=== PATIENT | female | born 1975 | race Two or more races ===

== ENCOUNTER → 2017-05-25 10:25 | Outpatient (CLI) | payer OTHER | END | disposition home or self-care (01) | LOC: LAB 10:25 | DX: J00 Acute nasopharyngitis [common cold] (principal) ==

== ENCOUNTER → 2017-05-25 | Outpatient (CLI) | payer OTHER ==
[~2017-05-25] VITALS: Ht 152.4 cm; Wt 109.8 kg
[~2017-05-25] MED LIST: ALEVE220 M1 PO; CARAFATE1 G PO; CEFADROXIL500 MG PO; CEFTIN500 MG PO; DOLOGEN CAPLET1 EACH PO; FLONASE16 GM NS; GILTUSS TR TAB1 EACH PO; KETO10TA2 PO; LAMICTAL150 M1 PO; LAMICTAL200 M1 PO; MEDROL4 MG PO; NEURONTIN300 MG PO; NEURONTIN600 MG PO; ORPH100T PO; PEPCID20 MG PO; SEPTRA DS PO; ULTRACET PO; URETRON DS1 TAB PO; VOLTAREM 50 MG PO; ZITHROMAX200 MG PO; ZITHROMAX500 MG PO; ZYRTEC10 MG PO
== END | disposition home or self-care (01) ==
LOC: PPHC 07:29
DX: J00 Acute nasopharyngitis [common cold] (principal)

== ENCOUNTER 2017-06-11 06:50 | Emergency (ER) | payer OTHER ==
[~2017-06-11] VITALS: Ht 162.6 cm; Wt 108.9 kg
== END 2017-06-11 09:13 | disposition home or self-care (01) ==
LOC: ER 06:50
DX: M25.561 Pain in right knee (principal)

== ENCOUNTER → 2017-06-23 | Emergency (ER) | payer OTHER ==
[~2017-06-23] VITALS: Ht 162.6 cm; Wt 111.1 kg
== END | disposition home or self-care (01) ==
LOC: ER 19:31
DX: M62.830 Muscle spasm of back (principal); J06.9 Acute upper respiratory infection, unspecified

== ENCOUNTER → 2017-06-30 | Outpatient (CLI) | payer OTHER | END | disposition home or self-care (01) | LOC: LAB 17:04 | DX: G40.909 Epilepsy, unspecified, not intractable, without status epilepticus (principal) ==

== ENCOUNTER 2017-07-13 09:30 | Outpatient (CLI) | payer OTHER | END 2017-07-13 09:39 | disposition home or self-care (01) | LOC: MAMO-SONO 09:30 | DX: Z12.31 Encounter for screening mammogram for malignant neoplasm of breast (principal); N64.59 Other signs and symptoms in breast; N64.89 Other specified disorders of breast ==

== ENCOUNTER 2017-08-26 16:28 | Outpatient (CLI) | payer OTHER | END 2017-08-26 16:33 | disposition home or self-care (01) | LOC: LAB 16:28 | DX: G40.309 Generalized idiopathic epilepsy and epileptic syndromes, not intractable, without status epilepticus (principal) ==

== ENCOUNTER → 2017-09-09 15:50 | Outpatient (CLI) | payer OTHER | END | disposition home or self-care (01) | LOC: LAB 15:50 | DX: E78.2 Mixed hyperlipidemia (principal); E04.1 Nontoxic single thyroid nodule; R73.09 Other abnormal glucose ==

== ENCOUNTER 2017-12-05 06:31 | Outpatient (CLI) | payer OTHER | END 2017-12-05 06:39 | disposition home or self-care (01) | LOC: LAB 06:31 | DX: G40.209 Localization-related (focal) (partial) symptomatic epilepsy and epileptic syndromes with complex partial seizures, not intractable, without status epilepticus (principal); M79.671 Pain in right foot; M79.672 Pain in left foot ==

== ENCOUNTER 2018-01-25 08:35 | Outpatient (CLI) | payer OTHER | END 2018-01-25 08:43 | disposition home or self-care (01) | LOC: SONOGRAMA 08:35 | DX: D25.1 Intramural leiomyoma of uterus (principal) ==

== ENCOUNTER → 2018-01-31 | Emergency (ER) | payer OTHER ==
[~2018-01-31] VITALS: Ht 162.6 cm; Wt 108.9 kg
== END | disposition home or self-care (01) ==
LOC: ER 14:01
DX: S61.211A Laceration without foreign body of left index finger without damage to nail, initial encounter (principal); S61.213A Laceration without foreign body of left middle finger without damage to nail, initial encounter; S61.012A Laceration without foreign body of left thumb without damage to nail, initial encounter; W26.0XXA Contact with knife, initial encounter; Y93.89 Activity, other specified; Y92.098 Other place in other non-institutional residence as the place of occurrence of the external cause; Y99.8 Other external cause status

== ENCOUNTER 2018-02-20 08:04 | Outpatient (CLI) | payer OTHER | END 2018-02-20 08:11 | disposition home or self-care (01) | LOC: LAB 08:04 | DX: Z00.00 Encounter for general adult medical examination without abnormal findings (principal); E78.49 Other hyperlipidemia ==

== ENCOUNTER 2018-03-24 11:48 | Outpatient (CLI) | payer OTHER ==
[~2018-03-24 11:48] MED LIST changes: +NABUMETONE750 MG PO
== END 2018-03-24 12:08 | disposition home or self-care (01) ==
LOC: SONOGRAMA 11:48
DX: M79.672 Pain in left foot (principal)

== ENCOUNTER 2018-03-28 13:05 | Emergency (ER) | payer OTHER ==
[~2018-03-28] VITALS: Ht 162.6 cm; Wt 108.9 kg
== END 2018-03-28 15:00 | disposition home or self-care (01) ==
LOC: ER 13:05
DX: G44.209 Tension-type headache, unspecified, not intractable (principal)

== ENCOUNTER 2018-06-26 17:13 | Outpatient (CLI) | payer OTHER ==
[~2018-06-26 17:13] MED LIST changes: +ETODOLAC400 MG PO
== END 2018-06-26 17:19 | disposition home or self-care (01) ==
LOC: LAB 17:13
DX: R23.3 Spontaneous ecchymoses (principal)

== ENCOUNTER 2018-06-27 11:18 | Outpatient (CLI) | payer OTHER | END 2018-06-27 15:27 | disposition home or self-care (01) | LOC: RAD 11:18 | DX: J32.8 Other chronic sinusitis (principal) ==

== ENCOUNTER 2018-08-16 13:37 | Emergency (ER) | payer OTHER ==
[~2018-08-16] VITALS: Ht 162.6 cm; Wt 109.8 kg
== END 2018-08-16 16:01 | disposition home or self-care (01) ==
LOC: ER 13:37
DX: S40.012A Contusion of left shoulder, initial encounter (principal); S40.022A Contusion of left upper arm, initial encounter; W18.39XA Other fall on same level, initial encounter; Y93.89 Activity, other specified; Y92.89 Other specified places as the place of occurrence of the external cause; Y99.8 Other external cause status

== ENCOUNTER 2018-08-25 11:15 | Outpatient (CLI) | payer OTHER | END 2018-08-25 16:18 | disposition home or self-care (01) | LOC: RAD 11:15 | DX: M25.572 Pain in left ankle and joints of left foot (principal) ==

== ENCOUNTER 2018-11-07 15:51 | Emergency (ER) | payer OTHER ==
[~2018-11-07] VITALS: Ht 162.6 cm; Wt 108.9 kg
== END 2018-11-07 17:59 | disposition home or self-care (01) ==
LOC: ER 15:51
DX: S93.492A Sprain of other ligament of left ankle, initial encounter (principal); X50.9XXA Other and unspecified overexertion or strenuous movements or postures, initial encounter; Y93.89 Activity, other specified; Y92.89 Other specified places as the place of occurrence of the external cause; Y99.8 Other external cause status

== ENCOUNTER 2018-11-16 18:10 | Emergency (ER) | payer OTHER ==
[~2018-11-16] VITALS: Ht 162.6 cm; Wt 108.9 kg
== END 2018-11-16 21:48 | disposition home or self-care (01) ==
LOC: ER 18:10
DX: M25.572 Pain in left ankle and joints of left foot (principal)

== ENCOUNTER 2018-11-27 07:48 | Outpatient (CLI) | payer OTHER | END 2018-11-27 07:52 | disposition home or self-care (01) | LOC: LAB 07:48 | DX: E78.49 Other hyperlipidemia (principal); Z00.00 Encounter for general adult medical examination without abnormal findings; R42 Dizziness and giddiness; E55.9 Vitamin D deficiency, unspecified; M25.50 Pain in unspecified joint ==

== ENCOUNTER 2018-12-15 14:38 | Outpatient (CLI) | payer OTHER | END 2018-12-15 14:41 | disposition home or self-care (01) | LOC: MAMO-SONO 14:38 | DX: Z12.31 Encounter for screening mammogram for malignant neoplasm of breast (principal) ==

== ENCOUNTER 2019-02-22 10:22 | Outpatient (CLI) | payer OTHER | END 2019-02-22 16:44 | disposition home or self-care (01) | LOC: LAB 10:22 | DX: J11.1 Influenza due to unidentified influenza virus with other respiratory manifestations (principal) ==

== ENCOUNTER → 2019-05-07 17:35 | Outpatient (CLI) | payer OTHER | END | disposition home or self-care (01) | LOC: LAB 17:35 | DX: J11.1 Influenza due to unidentified influenza virus with other respiratory manifestations (principal); J20.0 Acute bronchitis due to Mycoplasma pneumoniae ==

== ENCOUNTER 2019-11-09 15:06 | Outpatient (CLI) | payer OTHER | END 2019-11-09 18:00 | disposition home or self-care (01) | LOC: LAB 15:06 | PROVIDERS: ATTEND General Practice | DX: J11.1 Influenza due to unidentified influenza virus with other respiratory manifestations (principal); Z20.828 Contact with and (suspected) exposure to other viral communicable diseases; R51 Headache; Z11.59 Encounter for screening for other viral diseases ==

== ENCOUNTER 2019-11-16 10:15 | Outpatient (CLI) | payer OTHER | END 2019-11-16 12:10 | disposition home or self-care (01) | LOC: MAMO-SONO 10:15 | PROVIDERS: ATTEND General Practice | DX: Z12.31 Encounter for screening mammogram for malignant neoplasm of breast (principal); Z12.39 Encounter for other screening for malignant neoplasm of breast ==

== ENCOUNTER 2020-01-01 06:00 | Outpatient (CLI) | payer OTHER | END 2020-01-01 14:13 | disposition home or self-care (01) | LOC: PPH VACUNA 06:00 → EDBD 06:00 → PPH VACUNA 14:13 | DX: Z23 Encounter for immunization (principal) ==

== ENCOUNTER 2020-01-08 18:08 | Emergency (ER) | payer OTHER ==
[~2020-01-08] VITALS: Ht 162.6 cm; Wt 108.9 kg
[2020-01-08] MEDS ORDERED: ACETAMINOPHEN500 M1 PO (18:22)
== END 2020-01-08 21:59 | disposition home or self-care (01) ==
LOC: ER 18:08
DX: B34.9 Viral infection, unspecified (principal); M54.2 Cervicalgia; M62.838 Other muscle spasm; M47.892 Other spondylosis, cervical region; Z03.818 Encounter for observation for suspected exposure to other biological agents ruled out

== ENCOUNTER 2020-01-18 16:27 | Outpatient (CLI) | payer OTHER ==
[~2020-01-18 16:27] MED LIST changes: +ACETAMINOPHEN500 M1 PO
== END 2020-01-18 18:00 | disposition home or self-care (01) ==
LOC: LAB 16:27
PROVIDERS: ATTEND Internal Medicine
DX: E27.49 Other adrenocortical insufficiency (principal)

== ENCOUNTER 2020-01-21 17:04 | Outpatient (CLI) | payer OTHER | END 2020-01-21 18:00 | disposition home or self-care (01) | LOC: LAB 17:04 | PROVIDERS: ATTEND Internal Medicine | DX: E27.0 Other adrenocortical overactivity (principal) ==

== ENCOUNTER → 2020-02-15 16:04 | Outpatient (CLI) | payer OTHER | END | disposition home or self-care (01) | LOC: LAB 16:04 | PROVIDERS: ATTEND Psychiatry & Neurology Neurology | DX: G40.802 Other epilepsy, not intractable, without status epilepticus (principal); E55.9 Vitamin D deficiency, unspecified ==

== ENCOUNTER → 2020-02-20 16:17 | Outpatient (CLI) | payer OTHER ==
[~2020-02-20 16:17] MED LIST changes: +ZANAFLEX4 M1 PO
== END | disposition home or self-care (01) ==
LOC: LAB 16:17
PROVIDERS: ATTEND Internal Medicine
DX: U07.1 COVID-19 (principal)

== ENCOUNTER 2020-02-27 11:56 | Emergency (ER) | payer OTHER ==
[~2020-02-27] VITALS: Ht 162.6 cm; Wt 99.8 kg
[~2020-02-27 11:56] MED LIST changes: -ZANAFLEX4 M1 PO
[2020-02-27] MEDS ORDERED: KETO10TA2 PO (16:08)
[2020-02-27] MEDS ORDERED: ZANAFLEX4 M1 PO (16:08)
== END 2020-02-27 16:19 | disposition home or self-care (01) ==
LOC: ER 11:56 → CPU-OBS 12:23 → ER 16:19
DX: R42 Dizziness and giddiness (principal); M54.5 Low back pain; R51.9 Headache, unspecified; Z03.818 Encounter for observation for suspected exposure to other biological agents ruled out
CPT/HCPCS: G0378; G0379

== ENCOUNTER 2020-03-11 15:15 | Emergency (ER) | payer OTHER ==
[~2020-03-11] VITALS: Ht 162.6 cm; Wt 108.9 kg
[~2020-03-11 15:15] MED LIST changes: +ZANAFLEX4 M1 PO
== END 2020-03-11 19:14 | disposition home or self-care (01) ==
LOC: ER 15:15
DX: M26.69 Other specified disorders of temporomandibular joint (principal); R07.0 Pain in throat

== ENCOUNTER 2020-03-19 13:26 | Outpatient (CLI) | payer OTHER | END 2020-03-19 13:39 | disposition home or self-care (01) | LOC: MRI 13:26 | PROVIDERS: ATTEND Internal Medicine | DX: M54.5 Low back pain (principal); M54.6 Pain in thoracic spine; D25.9 Leiomyoma of uterus, unspecified | CPT/HCPCS: 72148 ==

== ENCOUNTER 2020-03-31 11:30 | Outpatient (CLI) | payer OTHER | END 2020-03-31 11:36 | disposition home or self-care (01) | LOC: LAB 11:30 | DX: Z20.828 Contact with and (suspected) exposure to other viral communicable diseases (principal); Z11.59 Encounter for screening for other viral diseases ==

== ENCOUNTER 2020-04-01 10:32 | Outpatient (CLI) | payer OTHER | END 2020-04-01 10:34 | disposition home or self-care (01) | LOC: PPH VACUNA 10:32 | DX: Z23 Encounter for immunization (principal) ==

== ENCOUNTER → 2020-05-08 15:04 | Outpatient (CLI) | payer OTHER | END | disposition home or self-care (01) | LOC: LAB 15:04 | PROVIDERS: ATTEND Internal Medicine Hematology & Oncology | DX: D68.0 Von Willebrand disease (principal); D68.8 Other specified coagulation defects ==

== ENCOUNTER 2020-05-19 15:52 | Outpatient (CLI) | payer OTHER | END 2020-05-19 17:31 | disposition home or self-care (01) | LOC: OFIC 805 15:52 | PROVIDERS: ATTEND Otolaryngology Otology & Neurotology | DX: H92.01 Otalgia, right ear (principal); T16.1XXA Foreign body in right ear, initial encounter ==

== ENCOUNTER 2020-05-20 17:16 | Emergency (ER) | payer OTHER ==
[~2020-05-20] VITALS: Ht 162.6 cm; Wt 108.9 kg
== END 2020-05-20 19:06 | disposition home or self-care (01) ==
LOC: ER 17:16
DX: M54.5 Low back pain (principal)

== ENCOUNTER 2020-06-03 07:15 | Outpatient (CLI) | payer OTHER | END 2020-06-03 07:20 | disposition home or self-care (01) | LOC: LAB 07:15 | PROVIDERS: ATTEND Surgery | DX: D64.89 Other specified anemias (principal); E11.9 Type 2 diabetes mellitus without complications; E03.8 Other specified hypothyroidism; B96.81 Helicobacter pylori [H. pylori] as the cause of diseases classified elsewhere; D51.8 Other vitamin B12 deficiency anemias; E55.9 Vitamin D deficiency, unspecified; E54 Ascorbic acid deficiency ==

== ENCOUNTER 2020-06-03 07:30 | Outpatient (CLI) | payer OTHER | END 2020-06-03 07:40 | disposition HB | LOC: SONOGRAMA 07:30 | DX: R10.84 Generalized abdominal pain (principal); K76.0 Fatty (change of) liver, not elsewhere classified ==

== ENCOUNTER 2020-08-20 06:11 | Outpatient (CLI) | payer OTHER | END 2020-08-20 06:16 | disposition home or self-care (01) | LOC: LAB 06:11 | PROVIDERS: ATTEND Psychiatry & Neurology Neurology | DX: E55.9 Vitamin D deficiency, unspecified (principal); G40.802 Other epilepsy, not intractable, without status epilepticus; Z03.818 Encounter for observation for suspected exposure to other biological agents ruled out; Z20.822 Contact with and (suspected) exposure to COVID-19 ==

== ENCOUNTER 2020-10-06 15:22 | Outpatient (CLI) | payer OTHER | END 2020-10-06 15:28 | disposition home or self-care (01) | LOC: LAB 15:22 | PROVIDERS: ATTEND Internal Medicine | DX: Z00.00 Encounter for general adult medical examination without abnormal findings (principal) ==

== ENCOUNTER 2020-10-06 16:25 | Outpatient (CLI) | payer OTHER | END 2020-10-06 16:30 | disposition home or self-care (01) | LOC: RAD 16:25 | PROVIDERS: ATTEND Internal Medicine | DX: R05 Cough (principal) ==

== ENCOUNTER 2020-12-11 12:49 | Outpatient (CLI) | payer OTHER | END 2020-12-11 12:53 | disposition home or self-care (01) | LOC: RAD 12:49 | PROVIDERS: ATTEND Emergency Medicine | DX: M54.5 Low back pain (principal); M25.511 Pain in right shoulder ==

== ENCOUNTER → 2020-12-11 | Emergency (ER) | payer OTHER ==
[~2020-12-11] VITALS: Ht 160 cm; Wt 108.9 kg
== END | disposition home or self-care (01) ==
LOC: ER 06:12 → CPU-OBS 06:30
DX: R07.89 Other chest pain (principal)
CPT/HCPCS: 93005; G0378; G0379

== ENCOUNTER 2020-12-31 12:36 | Outpatient (CLI) | payer OTHER | END 2020-12-31 12:39 | disposition home or self-care (01) | LOC: MAMO-SONO 12:36 | PROVIDERS: ATTEND Obstetrics & Gynecology | DX: N60.12 Diffuse cystic mastopathy of left breast (principal); N64.59 Other signs and symptoms in breast; Z12.31 Encounter for screening mammogram for malignant neoplasm of breast ==

== ENCOUNTER → 2021-01-02 09:01 | Outpatient (CLI) | payer OTHER | END | disposition home or self-care (01) | LOC: LAB 09:01 | PROVIDERS: ATTEND Surgery | DX: B96.81 Helicobacter pylori [H. pylori] as the cause of diseases classified elsewhere (principal); E11.9 Type 2 diabetes mellitus without complications; E03.8 Other specified hypothyroidism; E54 Ascorbic acid deficiency; E55.9 Vitamin D deficiency, unspecified; D51.8 Other vitamin B12 deficiency anemias; D46.4 Refractory anemia, unspecified ==

== ENCOUNTER 2021-01-02 09:16 | Outpatient (CLI) | payer OTHER | END 2021-01-02 09:21 | disposition home or self-care (01) | LOC: SONOGRAMA 09:16 | PROVIDERS: ATTEND Obstetrics & Gynecology | DX: R10.2 Pelvic and perineal pain (principal) ==

== ENCOUNTER 2021-01-12 08:00 | Outpatient (CLI) | payer OTHER | END 2021-01-12 08:30 | disposition home or self-care (01) | LOC: PPH VACUNA 08:00 | PROVIDERS: ATTEND Emergency Medicine Pediatric Emergency Medicine | DX: Z23 Encounter for immunization (principal) ==

== ENCOUNTER → 2021-01-14 10:46 | Outpatient (CLI) | payer OTHER ==
[~2021-01-14 10:46] MED LIST changes: +LAMICTAL150 MG PO
== END | disposition home or self-care (01) ==
LOC: MAMO-SONO 10:46
PROVIDERS: ATTEND Obstetrics & Gynecology
DX: R92.1 Mammographic calcification found on diagnostic imaging of breast (principal); N64.59 Other signs and symptoms in breast; R07.89 Other chest pain

== ENCOUNTER → 2021-01-14 11:29 | Outpatient (CLI) | payer OTHER | END | disposition home or self-care (01) | LOC: LAB 11:29 | PROVIDERS: ATTEND Obstetrics & Gynecology | DX: Z00.00 Encounter for general adult medical examination without abnormal findings (principal); I10 Essential (primary) hypertension; E03.8 Other specified hypothyroidism; E78.00 Pure hypercholesterolemia, unspecified; Z01.818 Encounter for other preprocedural examination; Z20.828 Contact with and (suspected) exposure to other viral communicable diseases ==

== ENCOUNTER 2021-01-20 10:34 | Outpatient (CLI) | payer OTHER ==
[~2021-01-20] VITALS: Ht 162.6 cm; Wt 101.6 kg
[~2021-01-20 10:34] MED LIST changes: -LAMICTAL150 MG PO
[2021-01-20] MEDS ORDERED: LAMICTAL150 MG PO (10:43)
== END 2021-01-20 15:00 | disposition home or self-care (01) ==
LOC: LAB 10:34
PROVIDERS: ATTEND Obstetrics & Gynecology
DX: M15.0 Primary generalized (osteo)arthritis (principal); Z01.818 Encounter for other preprocedural examination

== ENCOUNTER 2021-02-28 23:22 | Inpatient (IN) | payer OTHER ==
[~2021-02-28] VITALS: Ht 162.6 cm; Wt 98.4 kg
[~2021-02-28 23:22] MED LIST changes: +LAMICTAL150 MG PO
[2021-03-04] MEDS ORDERED: LEVOFLOXACIN750 MG PO (06:38)
== END 2021-03-04 12:41 | disposition home or self-care (01) | DRG 863 ==
LOC: ER 23:22 → OB/GYN 03-01 12:48
PROVIDERS: ADMIT Obstetrics & Gynecology; ATTEND Obstetrics & Gynecology
PROC: BW2110Z Computerized Tomography (CT Scan) of Abdomen and Pelvis using Low Osmolar Contrast, Unenhanced and Enhanced (ICD-10-PCS; principal; 2021-03-01)
PROC: BW41ZZZ Ultrasonography of Abdomen and Pelvis (ICD-10-PCS; 2021-03-01)
DX: T81.42XA Infection following a procedure, deep incisional surgical site, initial encounter (principal); L76.34 Postprocedural seroma of skin and subcutaneous tissue following other procedure; D64.9 Anemia, unspecified; E66.9 Obesity, unspecified; G40.909 Epilepsy, unspecified, not intractable, without status epilepticus; Z90.710 Acquired absence of both cervix and uterus; B95.1 Streptococcus, group B, as the cause of diseases classified elsewhere

== ENCOUNTER 2021-05-05 10:15 | Outpatient (CLI) | payer OTHER ==
[~2021-05-05 10:15] MED LIST changes: +LEVOFLOXACIN750 MG PO
[2021-05-05] MEDS ORDERED: LAMICTAL150 M1 PO (12:09)
[2021-05-05] MEDS ORDERED: NEURONTIN600 M1 PO (12:09)
[2021-05-05] MEDS ORDERED: CIPRO500 MG PO (17:20)
== END 2021-05-05 16:37 | disposition home or self-care (01) ==
LOC: LAB 10:15
PROVIDERS: ATTEND Preventive Medicine Occupational Medicine
DX: U07.1 COVID-19 (principal)

== ENCOUNTER 2021-05-05 11:29 | Emergency (ER) | payer OTHER ==
[~2021-05-05] VITALS: Ht 162.6 cm; Wt 98.9 kg
[2021-05-05] MEDS ORDERED: LAMICTAL150 M1 PO (12:09)
[2021-05-05] MEDS ORDERED: NEURONTIN600 M1 PO (12:09)
[2021-05-05] MEDS ORDERED: CIPRO500 MG PO (17:20)
== END 2021-05-05 17:45 | disposition home or self-care (01) ==
LOC: ER 11:29
DX: N39.0 Urinary tract infection, site not specified (principal); R50.9 Fever, unspecified; Z03.818 Encounter for observation for suspected exposure to other biological agents ruled out

== ENCOUNTER 2021-05-12 16:24 | Emergency (ER) | payer OTHER ==
[~2021-05-12] VITALS: Ht 162.6 cm; Wt 98.9 kg
[~2021-05-12 16:24] MED LIST changes: +CIPRO500 MG PO; +NEURONTIN600 M1 PO
== END 2021-05-12 22:26 | disposition home or self-care (01) ==
LOC: ER 16:24
DX: R10.2 Pelvic and perineal pain (principal); Z88.8 Allergy status to other drugs, medicaments and biological substances

== ENCOUNTER → 2021-06-04 15:24 | Outpatient (CLI) | payer OTHER | END | disposition home or self-care (01) | LOC: LAB 15:24 | PROVIDERS: ATTEND Internal Medicine | DX: N39.0 Urinary tract infection, site not specified (principal) ==

== ENCOUNTER → 2021-06-10 14:20 | Outpatient (CLI) | payer OTHER | END | disposition home or self-care (01) | LOC: LAB 14:20 | PROVIDERS: ATTEND Internal Medicine Gastroenterology | DX: Z11.52 Encounter for screening for COVID-19 (principal); Z20.828 Contact with and (suspected) exposure to other viral communicable diseases ==

== ENCOUNTER 2021-06-10 16:38 | Outpatient (CLI) | payer OTHER | END 2021-06-10 16:45 | disposition home or self-care (01) | LOC: RAD 16:38 | PROVIDERS: ATTEND Orthopaedic Surgery | DX: M25.461 Effusion, right knee (principal) ==

== ENCOUNTER 2021-07-24 17:52 | Outpatient (CLI) | payer OTHER | END 2021-07-24 17:59 | disposition home or self-care (01) | LOC: LAB 17:52 | PROVIDERS: ATTEND Emergency Medicine | DX: Z20.828 Contact with and (suspected) exposure to other viral communicable diseases (principal) ==

== ENCOUNTER 2021-08-18 06:29 | Outpatient (CLI) | payer OTHER | END 2021-08-18 06:35 | disposition home or self-care (01) | LOC: LAB 06:29 | PROVIDERS: ATTEND Psychiatry & Neurology Neurology | DX: E78.49 Other hyperlipidemia (principal) ==

== ENCOUNTER 2021-10-08 17:41 | Outpatient (CLI) | payer OTHER | END 2021-10-08 17:46 | disposition home or self-care (01) | LOC: LAB 17:41 | PROVIDERS: ATTEND Internal Medicine Hematology & Oncology | DX: D55.9 Anemia due to enzyme disorder, unspecified (principal) ==

== ENCOUNTER → 2021-10-27 | Emergency (ER) | payer OTHER ==
[~2021-10-27] VITALS: Ht 162.6 cm; Wt 102.1 kg
== END | disposition home or self-care (01) ==
LOC: ER 11:40
DX: R10.9 Unspecified abdominal pain (principal)

== ENCOUNTER 2021-11-16 07:49 | Outpatient (CLI) | payer OTHER | END 2021-11-16 07:57 | disposition home or self-care (01) | LOC: LAB 07:49 | PROVIDERS: ATTEND Internal Medicine | DX: N39.0 Urinary tract infection, site not specified (principal); R73.01 Impaired fasting glucose; I10 Essential (primary) hypertension; E16.2 Hypoglycemia, unspecified ==

== ENCOUNTER 2021-12-16 08:00 | Outpatient (CLI) | payer OTHER | END 2021-12-16 08:05 | disposition home or self-care (01) | LOC: PPH VACUNA 08:00 | PROVIDERS: ATTEND Emergency Medicine Pediatric Emergency Medicine | DX: Z23 Encounter for immunization (principal) ==

== ENCOUNTER 2022-01-20 16:21 | Outpatient (CLI) | payer OTHER | END 2022-01-20 16:26 | disposition home or self-care (01) | LOC: LAB 16:21 | PROVIDERS: ATTEND Internal Medicine Gastroenterology | DX: Z11.52 Encounter for screening for COVID-19 (principal); Z20.822 Contact with and (suspected) exposure to COVID-19; Z20.828 Contact with and (suspected) exposure to other viral communicable diseases ==

== ENCOUNTER 2022-01-22 10:31 | Outpatient (CLI) | payer OTHER | END 2022-01-22 10:43 | disposition home or self-care (01) | LOC: MRI 10:31 | PROVIDERS: ATTEND Physical Medicine & Rehabilitation | DX: M23.304 Other meniscus derangements, unspecified medial meniscus, left knee (principal) | CPT/HCPCS: 73721 ==

== ENCOUNTER → 2022-02-04 | Outpatient (CLI) | payer OTHER | END | disposition home or self-care (01) | LOC: MAMO-SONO 14:18 | PROVIDERS: ATTEND Surgery | DX: Z12.31 Encounter for screening mammogram for malignant neoplasm of breast (principal) ==

== ENCOUNTER 2022-05-08 08:59 | Outpatient (CLI) | payer OTHER | END 2022-05-08 09:00 | disposition home or self-care (01) | LOC: LAB 08:59 | PROVIDERS: ATTEND Internal Medicine | DX: I10 Essential (primary) hypertension (principal) ==

== ENCOUNTER → 2022-05-15 | Emergency (ER) | payer OTHER ==
[~2022-05-15] VITALS: Ht 162.6 cm; Wt 95.7 kg
== END | disposition home or self-care (01) ==
LOC: ER 12:27
DX: K08.89 Other specified disorders of teeth and supporting structures (principal); Z88.8 Allergy status to other drugs, medicaments and biological substances; Z91.018 Allergy to other foods

== ENCOUNTER → 2022-06-08 | Outpatient (CLI) | payer OTHER | END | disposition home or self-care (01) | LOC: NUCLEAR 07:00 | PROVIDERS: ATTEND Internal Medicine | DX: G40.209 Localization-related (focal) (partial) symptomatic epilepsy and epileptic syndromes with complex partial seizures, not intractable, without status epilepticus (principal) ==

== ENCOUNTER 2022-07-19 08:49 | Outpatient (CLI) | payer OTHER | END 2022-07-19 09:01 | disposition home or self-care (01) | LOC: LAB 08:49 | PROVIDERS: ATTEND Internal Medicine Gastroenterology | DX: K59.00 Constipation, unspecified (principal); K05.329 Chronic periodontitis, generalized, unspecified severity; R05.3 Chronic cough ==

== ENCOUNTER 2022-07-19 13:15 | Emergency (ER) | payer OTHER ==
[~2022-07-19] VITALS: Ht 162.6 cm; Wt 93.9 kg
== END 2022-07-19 15:54 | disposition home or self-care (01) ==
LOC: ER 13:15
DX: R30.0 Dysuria (principal); M54.59 Other low back pain; Z91.018 Allergy to other foods; Z88.6 Allergy status to analgesic agent

== ENCOUNTER 2022-07-29 12:16 | Emergency (ER) | payer OTHER ==
[~2022-07-29] VITALS: Ht 162.6 cm; Wt 94.3 kg
== END 2022-07-29 14:22 | disposition home or self-care (01) ==
LOC: ER 12:16
DX: R55 Syncope and collapse (principal); R42 Dizziness and giddiness; Z88.6 Allergy status to analgesic agent; Z91.018 Allergy to other foods; G40.89 Other seizures

== ENCOUNTER 2022-08-25 17:25 | Outpatient (CLI) | payer OTHER | END 2022-08-25 17:43 | disposition home or self-care (01) | LOC: LAB 17:25 | PROVIDERS: ATTEND Internal Medicine | DX: E78.49 Other hyperlipidemia (principal); M15.0 Primary generalized (osteo)arthritis; Z11.3 Encounter for screening for infections with a predominantly sexual mode of transmission ==

== ENCOUNTER 2022-11-16 09:39 | Outpatient (CLI) | payer OTHER | END 2022-11-16 10:25 | disposition home or self-care (01) | LOC: LAB 09:39 | PROVIDERS: ATTEND Internal Medicine | DX: D64.9 Anemia, unspecified (principal); R10.9 Unspecified abdominal pain; E03.9 Hypothyroidism, unspecified; E78.5 Hyperlipidemia, unspecified; I50.22 Chronic systolic (congestive) heart failure; I10 Essential (primary) hypertension ==

== ENCOUNTER 2022-11-29 09:23 | Outpatient (CLI) | payer OTHER | END 2022-11-29 14:07 | disposition home or self-care (01) | LOC: LAB 09:23 | PROVIDERS: ATTEND Internal Medicine | DX: M45.7 Ankylosing spondylitis of lumbosacral region (principal) ==

== ENCOUNTER 2023-02-08 15:48 | Emergency (ER) | payer OTHER ==
[~2023-02-08] VITALS: Ht 162.6 cm; Wt 94.8 kg
[2023-02-08] MEDS ORDERED: KEPPRA500 MG PO (15:51)
== END 2023-02-08 18:02 | disposition home or self-care (01) ==
LOC: ER 15:48
DX: M62.838 Other muscle spasm (principal); M54.9 Dorsalgia, unspecified

== ENCOUNTER → 2023-02-24 14:34 | Outpatient (CLI) | payer OTHER ==
[2023-02-24 10:34] LABS: HEMOGLOBIN 12.9 g/dL (12.0-15.00); MEAN CELL VOLUME 89.7 fL (80.00-100.00); MEAN CORPUSCULAR HEMOGLOBIN 29.6 pg (27.00-32.0); PLATELET COUNT 311 K/uL (150-450); RED BLOOD COUNT 4.34 M/uL (4.00-6.00); RED CELL DISTRIBUTION WIDTH 13.1 % (11.5-14.5)
[2023-02-24 10:42] LABS: ERYTHROCYTE SEDIMENTATION RATE 68 mm/hr
[2023-02-24 11:59] LABS: BILIRUBIN TOTAL 0.4 mg/dL (0.3-1.2); CALCIUM 9.5 mg/dL (8.5-10.1); CREATININE SERUM 0.55 mg/dL (0.55-1.02); GFR 118.48; GLOBULINA 3.9 G/DL (2.4-3.5); POTASSIUM 4.29 mEq/L (3.5-5.1); TOTAL PROTEIN 7.9 gm/dL (6.4-8.2)
[2023-02-24 12:07] LABS: C-REACTIVE PROTEIN 0.58 MG/DL (0.00-0.29)
[2023-02-24 12:14] LABS: T4 FREE 1.35 NG/ML (0.76-1.46); TSH 0.497 uIU/mL (0.358-3.74)
[~2023-02-24 14:34] MED LIST changes: +KEPPRA500 MG PO
== END | disposition home or self-care (01) ==
LOC: LAB 14:34
PROVIDERS: ATTEND Internal Medicine Hematology & Oncology
DX: R74.8 Abnormal levels of other serum enzymes (principal); D50.8 Other iron deficiency anemias; M17.12 Unilateral primary osteoarthritis, left knee; E03.8 Other specified hypothyroidism; D51.3 Other dietary vitamin B12 deficiency anemia; Z88.6 Allergy status to analgesic agent; Z91.018 Allergy to other foods

== ENCOUNTER 2023-03-16 11:19 | Outpatient (CLI) | payer OTHER ==
[2023-03-16 12:47] LABS: HEMATOCRIT 36.9 % (36.0-45.00); HEMOGLOBIN 12.5 g/dL (12.0-15.00); MEAN CELL VOLUME 90.4 fL (80.00-100.00); MEAN CORPUSCULAR HEMOGLOBIN 30.7 pg (27.00-32.0); MEAN CORPUSCULAR HGB CONC 33.9 g/dl (32.0-36.0); PLATELET COUNT 328 K/uL (150-450); RED BLOOD COUNT 4.08 M/uL (4.00-6.00); RED CELL DISTRIBUTION WIDTH 13.5 % (11.5-14.5)
[2023-03-16 13:36] LABS: ALBUMIN 3.7 gm/dL (3.4-5.0); BILIRUBIN TOTAL 0.56 mg/dL (0.3-1.2); CALCIUM 8.8 mg/dL (8.5-10.1); CHOL HDL RATIO 3.5 (0-5.0); CREATININE SERUM 0.6 mg/dL (0.55-1.02); GFR 107.16; GLOBULINA 3.6 G/DL (2.4-3.5); POTASSIUM 3.67 mEq/L (3.5-5.1); TOTAL PROTEIN 7.3 gm/dL (6.4-8.2)
[2023-03-16 13:40] LABS: TSH 0.268 uIU/mL (0.358-3.74)
== END 2023-03-16 11:20 | disposition home or self-care (01) ==
LOC: LAB 11:19
PROVIDERS: ATTEND Internal Medicine
DX: Z20.822 Contact with and (suspected) exposure to COVID-19 (principal); B34.2 Coronavirus infection, unspecified; D64.9 Anemia, unspecified; R10.9 Unspecified abdominal pain; E03.9 Hypothyroidism, unspecified; E78.5 Hyperlipidemia, unspecified; E11.9 Type 2 diabetes mellitus without complications; I50.22 Chronic systolic (congestive) heart failure

== ENCOUNTER 2023-05-18 15:12 | Outpatient (CLI) | payer OTHER | END 2023-05-18 15:23 | disposition home or self-care (01) | LOC: MRI 15:12 | PROVIDERS: ATTEND Internal Medicine | DX: M25.512 Pain in left shoulder (principal) | CPT/HCPCS: 73221 ==

== ENCOUNTER 2023-06-10 09:56 | Outpatient (CLI) | payer OTHER ==
[2023-06-10 10:32] LABS: HEMATOCRIT 38.1 % (36.0-45.00); HEMOGLOBIN 12.8 g/dL (12.0-15.00); MEAN CELL VOLUME 89.4 fL (80.00-100.00); MEAN CORPUSCULAR HEMOGLOBIN 30.1 pg (27.00-32.0); MEAN CORPUSCULAR HGB CONC 33.7 g/dl (32.0-36.0); PLATELET COUNT 290 K/uL (150-450); RED BLOOD COUNT 4.26 M/uL (4.00-6.00); RED CELL DISTRIBUTION WIDTH 13.2 % (11.5-14.5)
[2023-06-10 10:38] LABS: ERYTHROCYTE SEDIMENTATION RATE 44 mm/hr
[2023-06-10 11:16] LABS: ALBUMIN 3.8 gm/dL (3.4-5.0); BILIRUBIN TOTAL 0.38 mg/dL (0.3-1.2); CALCIUM 9.4 mg/dL (8.5-10.1); CHOL HDL RATIO 3.1 (0-5.0); CREATININE SERUM 0.55 mg/dL (0.55-1.02); GFR 118.48; GLOBULINA 3.8 G/DL (2.4-3.5); POTASSIUM 4.01 mEq/L (3.5-5.1); TOTAL PROTEIN 7.6 gm/dL (6.4-8.2); URIC ACID 2.8 mg/dL (2.5-7.5)
[2023-06-10 11:59] LABS: TSH 0.49 uIU/mL (0.358-3.74)
== END 2023-06-10 17:32 | disposition home or self-care (01) ==
LOC: LAB 09:56
PROVIDERS: ATTEND Internal Medicine
DX: M15.9 Polyosteoarthritis, unspecified (principal)

== ENCOUNTER 2023-07-06 16:20 | Outpatient (CLI) | payer OTHER | END 2023-07-06 16:30 | disposition home or self-care (01) | LOC: LAB 16:20 | PROVIDERS: ATTEND Internal Medicine | DX: Z11.3 Encounter for screening for infections with a predominantly sexual mode of transmission (principal) ==

== ENCOUNTER 2023-07-28 08:51 | Emergency (ER) | payer OTHER ==
[~2023-07-28] VITALS: Ht 162.6 cm; Wt 95.3 kg
[2023-07-28] MEDS ORDERED: ORPHENADRINE CITRATE 30 MG/ML AMPUL IM STA (09:04)
[2023-07-28] MEDS ORDERED: DEXAMETHASONE SODIUM PHOSPHATE 4 MG/ML VIAL IM STA (09:04)
[2023-07-28] MEDS ORDERED: KETOROLAC TROMETHAMINE 30 MG VIAL IM ONE (09:15)
[2023-07-28] MEDS ORDERED: RELAFEN DS1000 MG PO (09:32)
[2023-07-28] MEDS ORDERED: CYCLOBENZAPRINE10 MG PO (09:32)
== END 2023-07-28 09:50 | disposition home or self-care (01) ==
LOC: ER 08:51
DX: M62.838 Other muscle spasm (principal); Z91.018 Allergy to other foods; Z88.8 Allergy status to other drugs, medicaments and biological substances; G40.802 Other epilepsy, not intractable, without status epilepticus; M51.37 Other intervertebral disc degeneration, lumbosacral region; M19.90 Unspecified osteoarthritis, unspecified site

== ENCOUNTER 2023-10-15 12:29 | Outpatient (CLI) | payer OTHER ==
[~2023-10-15 12:29] MED LIST changes: +CYCLOBENZAPRINE10 MG PO; +GABAPENTIN600 MG PO; +LAMICTAL150 MG; +NEURONTIN600 MG; +RELAFEN DS1000 MG PO
== END 2023-10-15 12:32 | disposition home or self-care (01) ==
LOC: LAB 12:29
PROVIDERS: ATTEND Internal Medicine
DX: R05.1 Acute cough (principal)

== ENCOUNTER 2023-12-07 09:41 | Emergency (ER) | payer OTHER ==
[~2023-12-07] VITALS: Ht 162.6 cm; Wt 95.3 kg
[2023-12-07] MEDS ORDERED: KETOROLAC TROMETHAMINE 30 MG VIAL IM STA (09:57)
[2023-12-07] MEDS ORDERED: ORPHENADRINE CITRATE 30 MG/ML AMPUL IM STA (09:57)
[2023-12-07] MEDS ORDERED: DEXAMETHASONE SODIUM PHOSPHATE 4 MG/ML VIAL IM STA (09:58)
[2023-12-07] MEDS ORDERED: KETOROLAC TROMETHAMINE 30 MG VIAL ONE (10:03)
[2023-12-07] MEDS ORDERED: DEXAMETHASONE SODIUM PHOSPHATE 4 MG/ML VIAL ONE (10:03)
== END 2023-12-07 10:31 | disposition home or self-care (01) ==
LOC: ER 09:42
DX: M62.830 Muscle spasm of back (principal); Z88.8 Allergy status to other drugs, medicaments and biological substances

== ENCOUNTER 2023-12-12 12:37 | Outpatient (CLI) | payer OTHER ==
[2023-12-12 13:08] LABS: URINE APPEARANCE Clear; URINE BILIRRUBIN Negative (NEGATIVE); URINE BLOOD Negative; URINE COLOR Yellow; URINE GLUCOSE Negative (NEGATIVE); URINE KETONE Negative (NEGATIVE); URINE LEUKOCYTE Negative; URINE NITRATE Negative; URINE PROTEIN Negative (NEGATIVE); URINE UROBILINOGEN 0.2 E.U./dl
[2023-12-12 13:13] LABS: URINE BACTERIA 1642.9 uL (0.0-1933); URINE EPITHELIAL CELLS 25.4 uL (0.0-38.8); URINE RBC 53.8 uL (0.0-20.8); URINE WBC 2.6 uL (0.0-23.2)
[2023-12-12 13:20] LABS: HEMATOCRIT 38.6 % (36.0-45.00); HEMOGLOBIN 12.9 g/dL (12.0-15.00); MEAN CELL VOLUME 89.6 fL (80.00-100.00); MEAN CORPUSCULAR HGB CONC 33.5 g/dl (32.0-36.0); PLATELET COUNT 342 K/uL (150-450); RED BLOOD COUNT 4.31 M/uL (4.00-6.00); RED CELL DISTRIBUTION WIDTH 13.4 % (11.5-14.5)
[2023-12-12 13:36] LABS: ALBUMIN 3.6 gm/dL (3.4-5.0); BILIRUBIN TOTAL 0.41 mg/dL (0.3-1.2); CALCIUM 9.3 mg/dL (8.5-10.1); CREATININE SERUM 0.58 mg/dL (0.55-1.02); GFR 110.96; GLOBULINA 3.8 G/DL (2.4-3.5); POTASSIUM 3.7 mEq/L (3.5-5.1); TOTAL PROTEIN 7.4 gm/dL (6.4-8.2)
== END 2023-12-12 12:42 | disposition home or self-care (01) ==
LOC: LAB 12:37
PROVIDERS: ATTEND Internal Medicine
DX: N39.0 Urinary tract infection, site not specified (principal); N18.1 Chronic kidney disease, stage 1

== ENCOUNTER 2023-12-14 09:48 | Outpatient (CLI) | payer OTHER | END 2023-12-14 09:49 | disposition home or self-care (01) | LOC: RAD 09:48 | PROVIDERS: ATTEND Internal Medicine Cardiovascular Disease | DX: M54.50 Low back pain, unspecified (principal) ==

== ENCOUNTER 2024-01-04 09:42 | Outpatient (CLI) | payer OTHER ==
[2024-01-04 11:10] LABS: CHOL HDL RATIO 3.4 (0-5.0); T4 TOTAL 9.56 UG/DL (4.8-13.9); TSH 0.534 uIU/mL (0.358-3.74)
== END 2024-01-04 09:43 | disposition home or self-care (01) ==
LOC: LAB 09:42
PROVIDERS: ATTEND Psychiatry & Neurology Neurology
DX: E03.9 Hypothyroidism, unspecified (principal); E78.00 Pure hypercholesterolemia, unspecified

== ENCOUNTER 2024-02-07 08:45 | Outpatient (CLI) | payer OTHER | END 2024-02-07 08:52 | disposition home or self-care (01) | LOC: MAMO-SONO 08:45 | PROVIDERS: ATTEND Surgery | DX: N60.11 Diffuse cystic mastopathy of right breast (principal); N60.12 Diffuse cystic mastopathy of left breast ==

== ENCOUNTER 2024-02-11 12:19 | Outpatient (CLI) | payer OTHER | END 2024-02-11 23:00 | disposition home or self-care (01) | LOC: LAB 12:19 | PROVIDERS: ATTEND Preventive Medicine Occupational Medicine | DX: B19.10 Unspecified viral hepatitis B without hepatic coma (principal) ==

== ENCOUNTER 2024-04-09 09:36 | Outpatient (CLI) | payer OTHER ==
[2024-04-09 09:52] LABS: HEMATOCRIT 38.4 % (36.0-45.00); HEMOGLOBIN 12.8 g/dL (12.0-15.00); MEAN CELL VOLUME 90.6 fL (80.00-100.00); MEAN CORPUSCULAR HEMOGLOBIN 30.2 pg (27.00-32.0); MEAN CORPUSCULAR HGB CONC 33.4 g/dl (32.0-36.0); PLATELET COUNT 301 K/uL (150-450); RED BLOOD COUNT 4.24 M/uL (4.00-6.00)
[2024-04-09 11:06] LABS: ALBUMIN 3.7 gm/dL (3.4-5.0); BILIRUBIN TOTAL 0.31 mg/dL (0.3-1.2); CALCIUM 9.1 mg/dL (8.5-10.1); CHOL HDL RATIO 3.1 (0-5.0); CREATININE SERUM 0.66 mg/dL (0.55-1.02); GFR 95.59; GLOBULINA 3.9 G/DL (2.4-3.5); POTASSIUM 4.15 mEq/L (3.5-5.1); TOTAL PROTEIN 7.6 gm/dL (6.4-8.2)
== END 2024-04-09 09:40 | disposition home or self-care (01) ==
LOC: LAB 09:36
DX: G40.802 Other epilepsy, not intractable, without status epilepticus (principal)

== ENCOUNTER 2024-05-03 09:36 | Emergency (ER) | payer OTHER ==
[~2024-05-03] VITALS: Ht 162.6 cm; Wt 89.8 kg
[2024-05-03] MEDS ORDERED: ACETAMINOPHEN 500 MG GEL..CAP PO ONE ×2 (09:47→10:22)
[2024-05-03] MEDS ORDERED: KETOROLAC TROMETHAMINE 15 MG VIAL IM STA (10:17)
[2024-05-03] MEDS ORDERED: ACETAMINOPHEN 500 MG GEL..CAP PO STA (10:17)
[2024-05-03] MEDS ORDERED: DEXAMETHASONE SODIUM PHOSPHATE 4 MG/ML VIAL IM STA (10:18)
[2024-05-03] MEDS ORDERED: GUAIFENESIN 100 MG/5 ML BLIST.PACK PO STA (10:19)
[2024-05-03] MEDS ORDERED: KETOROLAC TROMETHAMINE 30 MG VIAL ONE (10:22)
[2024-05-03] MEDS ORDERED: GUAIFENESIN 200 MG/10 ML BLIST.PACK PO ONE (10:23)
[2024-05-03] MEDS ORDERED: DEXAMETHASONE SODIUM PHOSPHATE 4 MG/ML VIAL ONE (10:23)
[2024-05-03 11:26] LABS: HEMATOCRIT 38.1 % (36.0-45.00); HEMOGLOBIN 12.8 g/dL (12.0-15.00); MEAN CELL VOLUME 89.6 fL (80.00-100.00); MEAN CORPUSCULAR HGB CONC 33.5 g/dl (32.0-36.0); PLATELET COUNT 264 K/uL (150-450); RED BLOOD COUNT 4.26 M/uL (4.00-6.00); RED CELL DISTRIBUTION WIDTH 13.4 % (11.5-14.5)
[2024-05-03] MEDS ORDERED: ACETAMINOPHEN500 M1 PO (12:57)
[2024-05-03] MEDS ORDERED: AZITHROMYCIN500 MG PO (12:57)
[2024-05-03] MEDS ORDERED: ZYRTEC10 MG PO (12:57)
[2024-05-03] MEDS ORDERED: MUCINEX DM ER1 EAC1 PO (12:57)
[2024-05-03] MEDS ORDERED: MEDROLPACK PO (12:57)
== END 2024-05-03 13:46 | disposition home or self-care (01) ==
LOC: ER 09:38
PROVIDERS: General Practice
DX: J06.9 Acute upper respiratory infection, unspecified (principal); H83.09 Labyrinthitis, unspecified ear; Z20.822 Contact with and (suspected) exposure to COVID-19; Z88.8 Allergy status to other drugs, medicaments and biological substances; Z91.018 Allergy to other foods

== ENCOUNTER → 2024-05-09 10:41 | Outpatient (CLI) | payer OTHER ==
[~2024-05-09 10:41] MED LIST changes: +AZITHROMYCIN500 MG PO; +MEDROLPACK PO; +MUCINEX DM ER1 EAC1 PO
== END | disposition home or self-care (01) ==
LOC: LAB 10:41
DX: J15.7 Pneumonia due to Mycoplasma pneumoniae (principal); A49.3 Mycoplasma infection, unspecified site

== ENCOUNTER → 2024-05-10 | Outpatient (CLI) | payer OTHER ==
[2024-05-10 16:18] LABS: HEMOGLOBIN 13.7 g/dL (12.0-15.00); MEAN CELL VOLUME 88.3 fL (80.00-100.00); MEAN CORPUSCULAR HEMOGLOBIN 29.6 pg (27.00-32.0); MEAN CORPUSCULAR HGB CONC 33.5 g/dl (32.0-36.0); PLATELET COUNT 132 K/uL (150-450); RED BLOOD COUNT 4.64 M/uL (4.00-6.00); RED CELL DISTRIBUTION WIDTH 13.5 % (11.5-14.5); URINE APPEARANCE Clear; URINE BILIRRUBIN Negative (NEGATIVE); URINE BLOOD Negative; URINE COLOR Dark Yellow; URINE GLUCOSE Negative (NEGATIVE); URINE KETONE Trace (NEGATIVE); URINE LEUKOCYTE Negative; URINE NITRATE Negative; URINE PROTEIN Trace (NEGATIVE)
[2024-05-10 16:19] LABS: URINE BACTERIA 77.1 uL (0.0-1933); URINE CAST 2.35 uL (0.0-1.40); URINE EPITHELIAL CELLS 16.9 uL (0.0-38.8); URINE RBC 39.1 uL (0.0-20.8)
[2024-05-10 16:42] LABS: URINE MUCUS SCANT
== END | disposition home or self-care (01) ==
LOC: LAB 15:44
PROVIDERS: ATTEND Internal Medicine
DX: N39.0 Urinary tract infection, site not specified (principal); Z11.3 Encounter for screening for infections with a predominantly sexual mode of transmission; M25.59 Pain in other specified joint

== ENCOUNTER 2024-05-31 15:25 | Outpatient (CLI) | payer OTHER | END 2024-05-31 15:31 | disposition home or self-care (01) | LOC: LAB 15:25 | PROVIDERS: ATTEND Internal Medicine Infectious Disease | DX: A64 Unspecified sexually transmitted disease (principal); B19.9 Unspecified viral hepatitis without hepatic coma ==

== ENCOUNTER 2024-08-01 11:33 | Emergency (ER) | payer OTHER ==
[~2024-08-01] VITALS: Ht 162.6 cm; Wt 89.8 kg
[2024-08-01] MEDS ORDERED: ORPHENADRINE CITRATE 30 MG/ML AMPUL IM STA (12:53)
[2024-08-01] MEDS ORDERED: KETOROLAC TROMETHAMINE 60 MG VIAL IM STA (12:53)
[2024-08-01] MEDS ORDERED: KETOROLAC TROMETHAMINE 60 MG VIAL IM ONE (13:01)
[2024-08-01] MEDS ORDERED: ORPHENADRINE CITRATE 30 MG/ML AMPUL ONE (13:01)
== END 2024-08-01 13:20 | disposition home or self-care (01) ==
LOC: ER 11:34
DX: M51.26 Other intervertebral disc displacement, lumbar region (principal); R56.9 Unspecified convulsions; Z88.8 Allergy status to other drugs, medicaments and biological substances; Z91.018 Allergy to other foods

== ENCOUNTER → 2024-08-23 14:00 | Outpatient (CLI) | payer OTHER ==
[2024-08-23 12:31] LABS: ALBUMIN 3.8 gm/dL (3.4-5.0); BILIRUBIN TOTAL 0.44 mg/dL (0.3-1.2); CALCIUM 8.9 mg/dL (8.5-10.1); CHOL HDL RATIO 3.3 (0-5.0); CREATININE SERUM 0.62 mg/dL (0.55-1.02); GFR 102.74; GLOBULINA 4.1 G/DL (2.4-3.5); POTASSIUM 4.18 mEq/L (3.5-5.1); TOTAL PROTEIN 7.9 gm/dL (6.4-8.2); TSH 0.545 uIU/mL (0.358-3.74)
[2024-08-23 12:35] LABS: PH,URINE 6.5 (5.0-8.0); URINE APPEARANCE Clear; URINE BACTERIA 215.2 uL (0.0-1933); URINE BILIRRUBIN Negative (NEGATIVE); URINE BLOOD Negative; URINE COLOR Yellow; URINE EPITHELIAL CELLS 2.6 uL (0.0-38.8); URINE GLUCOSE Negative (NEGATIVE); URINE KETONE Negative (NEGATIVE); URINE LEUKOCYTE Negative; URINE NITRATE Negative; URINE PROTEIN Negative (NEGATIVE); URINE RBC 7.3 uL (0.0-20.8); URINE UROBILINOGEN 0.2 E.U./dl; URINE WBC 3.4 uL (0.0-23.2)
[2024-08-23 12:56] LABS: ob NEGATIVE (NEGATIVE)
[2024-08-23 13:05] LABS: HEMATOCRIT 39.7 % (36.0-45.00); HEMOGLOBIN 13.2 g/dL (12.0-15.00); MEAN CELL VOLUME 91.2 fL (80.00-100.00); MEAN CORPUSCULAR HEMOGLOBIN 30.4 pg (27.00-32.0); MEAN CORPUSCULAR HGB CONC 33.4 g/dl (32.0-36.0); PLATELET COUNT 326 K/uL (150-450); RED BLOOD COUNT 4.35 M/uL (4.00-6.00)
== END | disposition home or self-care (01) ==
LOC: LAB 14:00
PROVIDERS: ATTEND Internal Medicine
DX: N39.0 Urinary tract infection, site not specified (principal); E55.9 Vitamin D deficiency, unspecified; I10 Essential (primary) hypertension; E78.9 Disorder of lipoprotein metabolism, unspecified; E03.9 Hypothyroidism, unspecified; Z12.4 Encounter for screening for malignant neoplasm of cervix

== ENCOUNTER 2024-09-28 14:33 | Emergency (ER) | payer OTHER ==
[~2024-09-28] VITALS: Ht 162.6 cm; Wt 89.8 kg
[2024-09-28] MEDS ORDERED: KETOROLAC TROMETHAMINE 30 MG VIAL IM STA (15:18)
[2024-09-28] MEDS ORDERED: CEFTRIAXONE SODIUM 1,000 MG VIAL IM STA (15:18)
[2024-09-28] MEDS ORDERED: TRAMADOL HCL 50 MG TABLET PO STA (15:20)
[2024-09-28] MEDS ORDERED: LIDOCAINE HCL 1% 10ML VIAL ONE (15:35)
[2024-09-28] MEDS ORDERED: KETOROLAC TROMETHAMINE 30 MG VIAL ONE (15:35)
[2024-09-28] MEDS ORDERED: CEFTRIAXONE SODIUM 1,000 MG VIAL ONE (15:36)
== END 2024-09-28 16:52 | disposition home or self-care (01) ==
LOC: ER 14:33
DX: K06.8 Other specified disorders of gingiva and edentulous alveolar ridge (principal); Z88.8 Allergy status to other drugs, medicaments and biological substances; Z91.018 Allergy to other foods

== ENCOUNTER 2024-09-29 07:01 | Emergency (ER) | payer OTHER ==
[~2024-09-29] VITALS: Ht 162.6 cm; Wt 89.8 kg
[2024-09-29] MEDS ORDERED: KETOROLAC TROMETHAMINE 60 MG VIAL IM ONE ×2 (09:06→09:15)
== END 2024-09-29 14:38 | disposition home or self-care (01) ==
LOC: ER 07:05
DX: R51.9 Headache, unspecified (principal); R68.84 Jaw pain; Z88.8 Allergy status to other drugs, medicaments and biological substances; Z91.018 Allergy to other foods

== ENCOUNTER 2024-10-03 09:51 | Outpatient (CLI) | payer OTHER | END 2024-10-03 09:56 | disposition home or self-care (01) | LOC: MRI 09:51 | PROVIDERS: ATTEND Internal Medicine | DX: G50.0 Trigeminal neuralgia (principal) | CPT/HCPCS: 70551 ==

== ENCOUNTER 2025-01-29 06:07 | Outpatient (CLI) | payer OTHER ==
[2025-01-29 07:03] LABS: BASO % 0.5 % (0.1-1.2); EOS # 0.11 (0.04-0.54); EOS % 1.3 % (0.7-7.0); LYMPH # 2.15 (1.18-3.74); LYMPH % 25.1 % (19.3-53.1); MEAN PLATELET VOLUME 10.10 fl (9.4-12.4); MONO # 0.72 (0.24-0.82); MONO % 8.4 % (4.7-12.5); NEUT # 5.54 (1.56-6.13); NEUT % 64.5 % (34.0-71.1); RED CELL DISTRIBUTION WIDTH 12.3 % (11.6-14.4)
[2025-01-29 07:06] LABS: URINE APPEARANCE Clear; URINE BACTERIA 659.9 uL (0.0-1933); URINE BILIRRUBIN Negative (NEGATIVE); URINE BLOOD Negative; URINE COLOR Yellow; URINE EPITHELIAL CELLS 25.9 uL (0.0-38.8); URINE GLUCOSE Negative (NEGATIVE); URINE KETONE Negative (NEGATIVE); URINE LEUKOCYTE Negative; URINE NITRATE Negative; URINE PROTEIN Negative (NEGATIVE); URINE RBC 12.1 uL (0.0-20.8); URINE UROBILINOGEN 0.2 E.U./dl; URINE WBC 7.6 uL (0.0-23.2)
[2025-01-29 07:13] LABS: ERYTHROCYTE SEDIMENTATION RATE 34 mm/hr (0-20)
[2025-01-29 07:14] LABS: URINE CAST 0.14 uL (0.0-1.40)
[2025-01-29 07:53] LABS: ALT/SGPT 27.0 U/L (12-78); AST/SGOT 13.0 U/L (15-37); BILIRUBIN TOTAL 0.32 mg/dL (0.3-1.2); BUN CREA RATIO 20.0 (7.0-25.0); CHOL HDL RATIO 3.3 (0-5.0); CREATININE SERUM 0.56 mg/dL (0.55-1.02); GFR 115.06; GLOBULINA 3.3 G/DL (2.4-3.5); GLUCOSE FASTING 88.0 mg/dL (65-100); HDL 55.0 mg/dl (40-60); LDL 112.0 mg/dl (0-130); OSMOLALITY SERUM 280.0 MOSM/KG (275-295); TSH 1.2 uIU/mL (0.358-3.74); VLDL 12.0 (0-39)
== END 2025-01-29 06:12 | disposition home or self-care (01) ==
LOC: LAB 06:07
PROVIDERS: ATTEND Internal Medicine
DX: E78.9 Disorder of lipoprotein metabolism, unspecified (principal); N39.0 Urinary tract infection, site not specified; I10 Essential (primary) hypertension; E78.49 Other hyperlipidemia

== ENCOUNTER 2025-01-31 13:30 | Outpatient (CLI) | payer OTHER | END 2025-01-31 13:40 | disposition home or self-care (01) | LOC: PPH VACUNA 13:30 | PROVIDERS: ATTEND Emergency Medicine Pediatric Emergency Medicine | DX: Z23 Encounter for immunization (principal) ==

== ENCOUNTER 2025-02-12 11:00 | Outpatient (CLI) | payer OTHER | END 2025-02-12 11:05 | disposition home or self-care (01) | LOC: MAMO-SONO 11:00 | PROVIDERS: ATTEND Surgery | DX: N60.11 Diffuse cystic mastopathy of right breast (principal); N60.12 Diffuse cystic mastopathy of left breast ==

== ENCOUNTER 2025-02-16 08:21 | Emergency (ER) | payer OTHER ==
[~2025-02-16] VITALS: Ht 162.6 cm; Wt 90.7 kg
[2025-02-16] MEDS ORDERED: TRILEPTAL150 MG PO (08:31)
[2025-02-16] MEDS ORDERED: FAMOtidine 10 MG/ML (4ML VIAL) IV PUSH ONE (09:00)
[2025-02-16] MEDS ORDERED: 0.9 % SODIUM CHLORIDE 1,000 ML IV SCH (09:00)
[2025-02-16] MEDS ORDERED: FAMOTIDINE/PF 20 MG/2 ML VIAL ONE (09:12)
[2025-02-16 09:53] LABS: INR 0.98
[2025-02-16 09:59] LABS: ALT/SGPT 29.0 U/L (12-78); AST/SGOT 13.0 U/L (15-37); BILIRUBIN TOTAL 0.17 mg/dL (0.3-1.2); BUN CREA RATIO 16.0 (7.0-25.0); CREATININE SERUM 0.68 mg/dL (0.55-1.02); GFR 91.96; GLOBULINA 4.3 G/DL (2.4-3.5); GLUCOSE FASTING 90.0 mg/dL (65-100); OSMOLALITY SERUM 280.0 MOSM/KG (275-295); PHOSPHOKINASE CREATININE 54.0 U/L (26-192)
[2025-02-16] MEDS ORDERED: ORPHENADRINE CITRATE 30 MG/ML AMPUL IM ONE (10:00)
[2025-02-16 10:02] LABS: BASO % 0.3 % (0.1-1.2); EOS # 0.08 (0.04-0.54); EOS % 0.9 % (0.7-7.0); LYMPH # 2.84 (1.18-3.74); LYMPH % 30.8 % (19.3-53.1); MEAN PLATELET VOLUME 10.70 fl (9.4-12.4); MONO # 0.64 (0.24-0.82); MONO % 6.9 % (4.7-12.5); NEUT # 5.60 (1.56-6.13); NEUT % 60.8 % (34.0-71.1); RED CELL DISTRIBUTION WIDTH 12.3 % (11.6-14.4)
[2025-02-16] MEDS ORDERED: ORPHENADRINE CITRATE 30 MG/ML AMPUL ONE (10:04)
[2025-02-16] MEDS ORDERED: NORFLEX100MG PO (11:21)
[2025-02-16] MEDS ORDERED: PEPCID AC20 MG PO (11:21)
[2025-02-16] MEDS ORDERED: IBU400 MG PO (11:21)
== END 2025-02-16 12:36 | disposition home or self-care (01) ==
LOC: ER 08:21
PROVIDERS: General Practice
DX: F43.0 Acute stress reaction (principal); Z88.8 Allergy status to other drugs, medicaments and biological substances; Z91.018 Allergy to other foods

== ENCOUNTER 2025-02-22 09:54 | Emergency (ER) | payer OTHER ==
[~2025-02-22] VITALS: Ht 162.6 cm; Wt 90.7 kg
[~2025-02-22 09:54] MED LIST changes: +IBU400 MG PO; +NORFLEX100MG PO; +PEPCID AC20 MG PO; +TRILEPTAL150 MG PO
[2025-02-22] MEDS ORDERED: ORPHENADRINE CITRATE 30 MG/ML AMPUL ONE (10:59)
[2025-02-22] MEDS ORDERED: 0.9 % SODIUM CHLORIDE 1,000 ML IV SCH (11:00)
[2025-02-22] MEDS ORDERED: ORPHENADRINE CITRATE 30 MG/ML AMPUL IM ONE (11:00)
[2025-02-22 12:14] LABS: BASO % 0.2 % (0.1-1.2); EOS # 0.09 (0.04-0.54); EOS % 1.1 % (0.7-7.0); LYMPH # 2.54 (1.18-3.74); LYMPH % 31.2 % (19.3-53.1); MEAN PLATELET VOLUME 10.50 fl (9.4-12.4); MONO # 0.53 (0.24-0.82); MONO % 6.5 % (4.7-12.5); NEUT # 4.95 (1.56-6.13); NEUT % 60.8 % (34.0-71.1); RED CELL DISTRIBUTION WIDTH 12.2 % (11.6-14.4)
[2025-02-22 13:05] LABS: ALT/SGPT 26.0 U/L (12-78); AST/SGOT 15.0 U/L (15-37); BILIRUBIN TOTAL 0.28 mg/dL (0.3-1.2); BUN CREA RATIO 19.0 (7.0-25.0); CREATININE SERUM 0.58 mg/dL (0.55-1.02); GFR 110.49; GLOBULINA 3.9 G/DL (2.4-3.5); GLUCOSE FASTING 85.0 mg/dL (65-100); OSMOLALITY SERUM 282.0 MOSM/KG (275-295)
[2025-02-22] MEDS ORDERED: KETOROLAC TROMETHAMINE 30 MG VIAL IV ONE (14:00)
[2025-02-22] MEDS ORDERED: KETOROLAC TROMETHAMINE 30 MG VIAL ONE (14:37)
== END 2025-02-22 17:39 | disposition home or self-care (01) ==
LOC: ER 09:55
PROVIDERS: General Practice
DX: M41.86 Other forms of scoliosis, lumbar region (principal); M51.369 Other intervertebral disc degeneration, lumbar region without mention of lumbar back pain or lower extremity pain; Z88.8 Allergy status to other drugs, medicaments and biological substances; Z91.018 Allergy to other foods

== ENCOUNTER 2025-04-01 12:59 | Outpatient (CLI) | payer OTHER ==
[2025-04-01 13:21] LABS: BASO % 0.4 % (0.1-1.2); EOS # 0.10 (0.04-0.54); EOS % 1.5 % (0.7-7.0); LYMPH # 1.80 (1.18-3.74); LYMPH % 26.4 % (19.3-53.1); MEAN PLATELET VOLUME 9.80 fl (9.4-12.4); MONO # 0.58 (0.24-0.82); MONO % 8.5 % (4.7-12.5); NEUT # 4.29 (1.56-6.13); NEUT % 63.1 % (34.0-71.1); RED CELL DISTRIBUTION WIDTH 12.5 % (11.6-14.4)
[2025-04-01 13:38] LABS: COVID-19 AG NEGATIVE (NEGATIVE)
[2025-04-01 14:19] LABS: MYCOPLASMA PNEUMONIAE IGM NON REACTIVE (NO REACTIVE)
== END 2025-04-01 13:01 | disposition home or self-care (01) ==
LOC: LAB 12:59
PROVIDERS: ATTEND Internal Medicine
DX: J22 Unspecified acute lower respiratory infection (principal); J11.1 Influenza due to unidentified influenza virus with other respiratory manifestations; A49.3 Mycoplasma infection, unspecified site